=== PATIENT | female | born 1940 | race Caucasian/White ===

== ENCOUNTER 2017-07-15 07:08 | Emergency (ER) | payer MEDICARE, OTHER ==
--- NOTE | 2017-07-15 08:21 | RAD ---
INDICATION: Chest pain COMPARISON: January 24, 2013 TECHNIQUE: PA and lateral dual-energy views were obtained. FINDINGS: Bones/Soft Tissues: There are no acute bony findings. Cardiomediastinal: The cardiomediastinal silhouette is normal. Lungs: There are no infiltrates. Pleura: There are no pleural effusions. Other: None IMPRESSION: NO ACTIVE DISEASE.
[2017-07-15 09:23] LABS: Hematocrit 40 % (35-47); Hemoglobin 13.1 g/dl (12.0-16.0); Mean Corpuscular HGB Conc 33 g/dl (31-36); Mean Corpuscular Hemoglobin 31 pg (27-31); Mean Corpuscular Volume 92 fL (80-97); Mean Platelet Volume 10 um3 (7.4-10.4); Red Blood Count 4.29 10^6/ul (4.0-5.4); Red Cell Distribution Width 14 % (10.5-15); White Blood Count 6.3 10^3/ul (3.5-10.8)
[2017-07-15 09:32] LABS: Albumin 3.8 g/dL (3.2-5.2); BUN/Creatinine Ratio 14.8 (8-20); EGFR African American 122.3 (>60); EGFR Non-African American 95.1 (>60); Globulin 2.4 g/dL (2-4); Potassium 3.8 mmol/L (3.5-5.0); Total Bilirubin 0.5 mg/dL (0.2-1.0); Total Protein 6.2 g/dL (6.4-8.9)
[2017-07-15] MEDS ORDERED: GuaiFENesin DM* 5 ML UDC PO ONE (09:35)
[2017-07-15 10:55] VITALS: BP 118/68
[2017-07-15 11:21] LABS: TSH (Thyroid Stimulating Horm) 1.03 mcIU/mL (0.34-5.60)
--- NOTE | 2017-07-16 07:31 | ED ---
Chun Jules Angela scribed for Moy Alonzo MD on 07/15/17 at 0731 . Respiratory - HPI Summary HPI Summary: This pt is a 77 y/o female presenting to [facility] c/o "chest cold" x2 weeks and cough. Pt reports her cough is productive with white sputum. She additionally c/ o intermittent chest pain for a couple of days. She rates the severity of her chest pain 5/10. She notes her chest pain is non-radiating. Pt currently denies any chest pain. She denies rhinorrhea, fever, chills, nausea, vomiting, diaphoresis. Per son, pt has dementia and seems to forget sometimes. - History of Current Complaint Chief Complaint: EDGeneral Stated Complaint: COLD Hx Obtained From: Patient Onset/Duration: Lasting Weeks, Still Present Timing: Constant Pain Intensity: 0 Character: Cough (Productive) Sputum Amount: Small Sputum Color: White Associated Signs and Symptoms: Chest Pain - Allergy/Home Medications Allergies/Adverse Reactions: Allergies Allergy/AdvReac Type Severity Reaction Status Date / Time Sulfa Drugs Allergy Intermediate Rash Verified 01/24/13 08:32 Hydrocodone Allergy Unknown Verified 03/24/17 14:59 Reaction Details PMH/Surg Hx/FS Hx/Imm Hx Endocrine/Hematology History: Denies: Hx Diabetes Cardiovascular History: Reports: Hx Angina Denies: Hx Coronary Artery Disease, Hx Hypercholesterolemia, Hx Hypertension , Hx Myocardial Infarction, Hx Pacemaker/ICD, Hx Valvular Heart Disease Respiratory History: Denies: Hx Asthma, Hx Chronic Obstructive Pulmonary Disease (COPD) Sensory History: Reports: Hx Contacts or Glasses Denies: Hx Hearing Aid Opthamlomology History: Reports: Hx Contacts or Glasses Neurological History: Reports: Hx Dementia Psychiatric History: Reports: Hx Panic Disorder - ANXIETY - Cancer History Hx Chemotherapy: No Hx Radiation Therapy: No - Surgical History Surgery Procedure, Year, and Place: foot surgery-bunion removal - Immunization History Date of Tetanus Vaccine: unknown Infectious Disease History: No Infectious Disease History: Denies: Traveled Outside the [place] in Last 30 Days - Family History Known Family History: Positive: Hypertension - brother, Other - Father: colon CA. Mother: bone CA. - Social History Alcohol Use: None Substance Use Type: Reports: None Smoking Status (MU): Never Smoked Tobacco Review of Systems Negative: Fever, Chills, Skin Diaphoresis Negative: Nasal Discharge Positive: Chest Pain Positive: Cough Negative: Vomiting, Nausea Musculoskeletal: Negative Skin: Negative Neurological: Negative All Other Systems Reviewed And Are Negative: Yes Physical Exam - Summary Physical Exam Summary: VITAL SIGNS: Reviewed. GENERAL: Patient is a well-developed and nourished female who is lying comfortable in the stretcher. Patient is not in any acute respiratory distress. HEAD AND FACE: No signs of trauma. No ecchymosis, hematomas or skull depressions. No sinus tenderness. EYES: PERRLA, EOMI x 2, No injected conjunctiva, no nystagmus. EARS: Hearing grossly intact. Ear canals and tympanic membranes are within normal limits. MOUTH: Oropharynx within normal limits. NECK: Supple, trachea is midline, no adenopathy, no JVD, no carotid bruit, no c- spine tenderness, neck with full ROM. CHEST: Symmetric, no tenderness at palpation LUNGS: Clear to auscultation bilaterally. No wheezing or crackles. CVS: Regular rate and rhythm, S1 and S2 present, no murmurs or gallops appreciated. ABDOMEN: Soft, non-tender. No signs of distention. No rebound no guarding, and no masses palpated. Bowel sounds are normal. EXTREMITIES: FROM in all major joints, no edema, no cyanosis or clubbing. NEURO: Alert and oriented x 3. No acute neurological deficits. Speech is normal and follows commands. SKIN: Dry and warm Triage Information Reviewed: Yes Vital Signs On Initial Exam: Initial Vitals Temp Pulse Resp BP Pulse Ox 97.4 F 70 18 130/58 100 07/15/17 07:10 07/15/17 07:10 07/15/17 07:10 07/15/17 07:10 07/15/17 07:10 Vital Signs Reviewed: Yes Diagnostics - Vital Signs Vital Signs Temp Pulse Resp BP Pulse Ox 07/15/17 07:10 97.4 F 70 18 130/58 100 - Laboratory Lab Results: Lab Results 07/15/17 07/15/17 07/15/17 Range/Units 08:10 08:10 08:10 WBC 6.3 (3.5-10.8) 10^3/ul RBC 4.29 (4.0-5.4) 10^6/ul Hgb 13.1 (12.0-16.0) g/dl Hct 40 (35-47) % MCV 92 (80-97) fL MCH 31 (27-31) pg MCHC 33 (31-36) g/dl RDW 14 (10.5-15) % Plt Count 169 (150-450) 10^3/ul MPV 10 (7.4-10.4) um3 Neut % (Auto) 67.9 (38-83) % Lymph % (Auto) 21.3 L (25-47) % Sevier % (Auto) 7.2 (1-9) % Eos % (Auto) 2.9 (0-6) % Baso % (Auto) 0.7 (0-2) % Absolute Neuts (auto) 4.3 (1.5-7.7) 10^3/ul Absolute Lymphs (auto) 1.3 (1.0-4.8) 10^3/ul Absolute Monos (auto) 0.5 (0-0.8) 10^3/ul Absolute Eos (auto) 0.2 (0-0.6) 10^3/ul Absolute Basos (auto) 0 (0-0.2) 10^3/ul Absolute Nucleated RBC 0.01 10^3/ul Nucleated RBC % 0.1 Sodium 140 (133-145) mmol/L Potassium 3.8 (3.5-5.0) mmol/L Chloride 105 (101-111) mmol/L Carbon Dioxide 28 (22-32) mmol/L Anion Gap 7 (2-11) mmol/L BUN 9 (6-24) mg/dL Creatinine 0.61 (0.51-0.95) mg/dL Est GFR ( Amer) 122.3 (>60) Est GFR (Non-Af Amer) 95.1 (>60) BUN/Creatinine Ratio 14.8 (8-20) Glucose 81 (70-100) mg/dL Calcium 9.0 (8.6-10.3) mg/dL Total Bilirubin 0.50 (0.2-1.0) mg/dL AST 23 (13-39) U/L ALT 15 (7-52) U/L Alkaline Phosphatase 82 (34-104) U/L Total Creatine Kinase 88 (10-223) U/L CK-MB (CK-2) 1.7 (0.6-6.3) ng/mL Troponin I 0.00 (<0.04) ng/mL B-Natriuretic Peptide 80 ( - 100) pg/mL Total Protein 6.2 L (6.4-8.9) g/dL Albumin 3.8 (3.2-5.2) g/dL Globulin 2.4 (2-4) g/dL Albumin/Globulin Ratio 1.6 (1-3) TSH 1.03 (0.34-5.60) mcIU/mL Result Diagrams: 07/15/17 08:10 07/15/17 08:10 Lab Statement: Any lab studies that have been ordered have been reviewed, and results considered in the medical decision making process. - Radiology Chest XR Xray Interpretation: No Acute Changes - IMPRESSION: No active disease. ED physician has reviewed this radiology report and agrees. Radiology Interpretation Completed By: Radiologist - EKG 0750 Cardiac Rate: NL EKG Rhythm: Sinus Rhythm - 60 bpm EKG Interpretation: No ST elevation. T wave inversion in III. Disposition - Course Assessment/Plan: This pt is a 77 y/o female presenting to [facility] c/o "chest cold " x2 weeks and cough. Pt reports her cough is productive with white sputum. She additionally c/o intermittent chest pain for a couple of days. She rates the severity of her chest pain 5/10. She notes her chest pain is non-radiating. Pt currently denies any chest pain. She denies rhinorrhea, fever, chills, nausea, vomiting, diaphoresis. Per son, pt has dementia and seems to forget sometimes. Test results without any significant abnormalities. Chest XR shows no active disease. The pt continued to have episodes of coughing in the ED, for which the pt was given Robitussin with codeine and her symptoms significantly improved. I believe the pt has a viral cough and therefore she was given a prescription for cough medication to take at home. I discussed the test results with the pt and pts son. They understand and agree with the plan. Pt was instructed to return to the ED for any fever, chills, nausea, and/or vomiting. - Differential Dx - Cardiopulmonary Differential Diagnoses - Cardiopulmonary: Bronchitis, Chest Wall Pain, Exacerbation Of COPD, Influenza - Diagnoses Provider Diagnoses: Cough, likely viral Discharge - Discharge Plan Condition: Stable Disposition: HOME Prescriptions: Guaifenesin-Codeine [Guaiatussin AC 100-10 mg/5Ml] 10 ml PO Q6HR PRN #200 ml MDD 40 PRN Reason: Cough Patient Education Materials: Acute Cough (ED) Referrals: Blaise Melendez MD [Primary Care Provider] - Additional Instructions: Please follow up with your primary care provider. RETURN TO THE ED FOR ANY WORSENING SYMPTOMS. The documentation as recorded by the Chun verdin Angela accurately reflects the service I personally performed and the decisions made by Clinton cook Walter, MD.
== END 2017-07-15 10:54 | disposition home or self-care (01) ==
LOC: ED 07:08
DX: R07.9 Chest pain, unspecified (principal); R05 Cough
CPT/HCPCS: 36415; 71020; 80053; 82550; 82553; 83880; 84443; 84484; 85025; 93005; 99283; A9270-GY

== ENCOUNTER 2020-01-15 11:55 | Day surgery (SDC) | payer MEDICARE, OTHER ==
[~2020-01-15 11:55] MED LIST: Buffered Lidocaine 1% SYRIN 1 ml INTRADERM ONE; DiMENhydriNATE IV 50 mg/ml 1 ml VIAL IV PUSH PRN; Famotidine IV 10 MG/ML 2 ml VIAL (20 mg) IV ONE; HYDROmorphone 1 MG/1 ML SYRINGE IV PRN; Lactated Ringers 1000 ml BAG 1,000 ML IV SCH; Naloxone 0.4 mg VIAL 0.4 mg/ml 1 ml VIAL IV PRN; Ondansetron ODT 4 mg TAB 4 MG TAB PO ONE; Prochlorperazine 5 mg/ml 2 ml VIAL (10 mg) IV PRN; fentaNYL 100 mcg/2 ml 50 MCG/ML VIAL IV PRN
[2020-01-15] MEDS ORDERED: ceFAZolin 2 GM PREMIX in ORs 2 GM/50 ML BAG ONE (12:22)
[2020-01-15] MEDS ORDERED: Famotidine IV 10 MG/ML 2 ml VIAL (20 mg) ONE (12:23)
[2020-01-15] MEDS ORDERED: Midazolam 5 mg/5 ml VIAL 1 mg/ml 5 ml VIAL (5 mg) ONE (13:04)
[2020-01-15] MEDS ORDERED: fentaNYL 100 mcg/2 ml 50 MCG/ML VIAL ONE (13:04)
[2020-01-15] MEDS ORDERED: Ketamine HCL 50 mg/ml 10 ml VIAL (500 MG) ONE (13:04)
[2020-01-15] MEDS ORDERED: Bupivacaine 0.25% SDV 30 ML ONE (16:51)
[2020-01-15] MEDS ORDERED: Propofol 10 MG/ML 20 ML BTL ONE (17:11)
[2020-01-15] MEDS ORDERED: diPHENhydraMINE IV 50 MG/ML 1 ml VIAL (BENADRYL) IV PRN (17:18)
[2020-01-15] MEDS ORDERED: Lactulose 30 ml UDC PO PRN (17:18)
[2020-01-15] MEDS ORDERED: oxyCODONE/Acetamin 5/325 mg TAB PO PRN (17:18)
[2020-01-15] MEDS ORDERED: Magnesium Hydroxide LIQ 30 ML UDC PO PRN (17:18)
[2020-01-15] MEDS ORDERED: diPHENhydraMINE 25 mg TAB PO PRN (17:18)
[2020-01-15] MEDS ORDERED: Ondansetron 4 mg VIAL 2 MG/ML 2 ml VIAL IV PRN (17:18)
[2020-01-15] MEDS ORDERED: Ondansetron ODT 4 mg TAB 4 MG TAB PO PRN (17:18)
[2020-01-15] MEDS: Lactated Ringers 1000 ml BAG 1,000 ML IV SCH (19:37)
[2020-01-15] MEDS ORDERED: ceFAZolin 1 GM in Dextrose (*) 1 GM/50 ML BAG IVPB SCH (23:00)
[2020-01-15] MEDS: Magnesium Hydroxide LIQ 30 ML UDC PO SCH (23:39)
[2020-01-15] MEDS: ceFAZolin 1 GM* X 3 DOSES POST-OP Q8H (AddVan) IVPB SCH (23:53)
[2020-01-16 06:49] LABS: Hematocrit 29 % (35-47); Hemoglobin 10.2 g/dL (12.0-16.0); Mean Platelet Volume 9.5 fL (7.4-10.4); Platelet Count 139 10^3/uL (150-450)
[2020-01-16] MEDS: Lactated Ringers 1000 ml BAG 1,000 ML IV SCH (06:59)
[2020-01-16] MEDS: ceFAZolin 1 GM* X 3 DOSES POST-OP Q8H (AddVan) IVPB SCH ×2 (07:28→14:45)
[2020-01-16 08:49] LABS: BUN/Creatinine Ratio 30.3 (8-20); Calcium 8.6 mg/dL (8.6-10.3); EGFR African American 88.8 (>60); EGFR Non-African American 73.4 (>60); Potassium 4.1 mmol/L (3.5-5.0)
[2020-01-16] MEDS ORDERED: Vitamin THERAPEUTIC TAB PO SCH (09:00)
[2020-01-16] MEDS: Magnesium Hydroxide LIQ 30 ML UDC PO SCH (09:27)
[2020-01-16 11:24] VITALS: BP 110/52
== END 2020-01-16 15:11 | disposition home or self-care (01) | DRG 470 ==
LOC: OR 11:55 → SSU 17:18
PROVIDERS: ADMIT Orthopaedic Surgery Adult Reconstructive Orthopaedic Surgery; ATTEND Orthopaedic Surgery Adult Reconstructive Orthopaedic Surgery